=== PATIENT | male | born 2005 | race American Indian/Alaskan Native ===

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

== ENCOUNTER 2024-01-01 17:19 | Emergency (ER) | payer SELFPAY ==
[2024-01-01] MEDS ORDERED: Sodium Chloride 0.9% 10 ML Syringe FLUSH PRN (17:27)
[2024-01-01 17:42] LABS: BASOPHILS PERCENT AUTO 0.6 % (0.0-1.0); EOSINOPHILS PERCENT AUTO 0.9 % (1.0-3.0); HEMATOCRIT 47.2 % (40.0-54.0); HEMOGLOBIN 16.1 g/dL (14.0-18.0); LYMPHOCYTES PERCENT AUTO 23.2 % (20.5-50.1); MEAN CORPUSCULAR HEMOGLOBIN 28.5 pg (27.0-34.0); MEAN CORPUSCULAR HGB CONC 34.1 g/dL (33.0-35.0); MEAN CORPUSCULAR VOLUME 83.7 fL (80-100); MONOCYTES PERCENT AUTO 7.4 % (2-8); NEUTROPHILS PERCENT AUTO 67.9 % (42.2-75.2); PLATELET COUNT,PLT 376 10^3/uL (150-450); RED BLOOD CELL COUNT 5.64 10^6/uL (4.6-6.2)
[2024-01-01] MEDS: Ondansetron 4 MG/2 ML SDV IVPUSH ONE (17:44)
[2024-01-01 18:01] LABS: PROTHROMBIN TIME 9.9 SEC (9.0-12.0); PTT,PARTIAL THROMBOPLSTIN TIME 25.9 SEC (22.0-34.0)
[2024-01-01 18:02] LABS: APPEARANCE,URINE CLEAR (CLEAR); BILIRUBIN,URINE NEGATIVE (NEGATIVE); COLOR,URINE LIGHT YELLOW (YELLOW); GLUCOSE,URINE NEGATIVE (NEGATIVE); KETONES,URINE NEGATIVE (NEGATIVE); LEUKOCYTE ESTERASE,URINE TRACE (NEGATIVE); NITRITE,URINE NEGATIVE (NEGATIVE); OCCULT BLOOD,URINE TRACE-INTACT (NEGATIVE); PROTEIN,URINE NEGATIVE (NEGATIVE); UROBILINOGEN,URINE 0.2 mg/dL (0.2-1.0)
[2024-01-01] MEDS: Naloxone 2 MG/2 ML Syringe IVPUSH ONE (18:05)
[2024-01-01] MEDS: Sodium Chloride 0.9% 1,000 ML IV ONE ×2 (18:05)
[2024-01-01 18:08] LABS: AMPHETAMINES,URINE NEGATIVE (NEGATIVE); BARBITURATES,URINE NEGATIVE (NEGATIVE); BENZODIAZEPINE,URINE NEGATIVE (NEGATIVE); MDMA (ECSTASY), URINE NEGATIVE (NEGATIVE); METHADONE,URINE NEGATIVE (NEGATIVE); METHAMPHETAMINES,URINE NEGATIVE (NEGATIVE); OPIATES,URINE NEGATIVE (NEGATIVE); OXYCODONE,URINE NEGATIVE (NEGATIVE); PHENCYCLIDINE,URINE NEGATIVE (NEGATIVE); TCA,URINE NEGATIVE (NEGATIVE)
[2024-01-01 18:09] LABS: LACTIC ACID 2.1 mmol/L (0.4-2.0)
[2024-01-01 18:11] LABS: BACTERIA,URINE RARE /HPF (0-FEW/HPF); EPITHELIAL CELLS,URINE FEW /HPF (NOT SEEN); RBC,URINE 0-5 /HPF (0-5)
[2024-01-01 18:12] LABS: ALANINE AMINOTRANSFERASE,ALT 75 U/L (16-63); ALBUMIN 4.1 g/dL (3.4-5.0); ALKALINE PHOSPHATASE 157 U/L (46-116); ANION GAP 16.6 mEq/L (7-13); ASPARTATE AMNIOTRANSFERASE,AST 40 U/L (15-37); BILIRUBIN TOTAL 0.4 mg/dL (0.2-1.0); BLOOD UREA NITROGEN,BUN 8 mg/dL (7-18); BUN/CREATININE RATIO 9.4 (No establ ref range); C-REACTIVE PROTEIN 0.67 ng/dL (<=0.50); CALCIUM 9.1 mg/dL (8.5-10.1); CARBON DIOXIDE,CO2 25 mmol/L (21-32); CHLORIDE,CL 104 mmol/L (98-107); CREATININE 0.85 mg/dL (0.70-1.30); EST CRCL DRUG DOSING (CG) 156.67 mL/min; GLUCOSE RANDOM 112 mg/dL (70-99); MAGNESIUM 2.1 mg/dL (1.8-2.4); POTASSIUM,K 3.6 mmol/L (3.5-5.1); PROTEIN TOTAL,TP 8.3 g/dL (6.4-8.2); SODIUM,NA 142 mmol/L (136-145)
[2024-01-01] MEDS: Flumazenil 0.1 MG/ML 5 ML MDV IVPUSH ONE (18:49)
[2024-01-01 18:56] LABS: ESTIMATED GFR 128 mL/min (>=60); ETHANOL BLOOD MEDICAL 308 mg/dL (0)
[2024-01-01] MEDS ORDERED: Sodium Chloride 0.9% 2,000 ML IV ONE (19:12)
[2024-01-01] MEDS: cefTRIAXone 1 GM Vial IVPUSH ONE (19:35)
[2024-01-01 22:20] VITALS: BP 112/55; PULSE 90
== END 2024-01-02 06:26 | disposition left against medical advice (07) ==
LOC: DL.ED 17:19
DX: A41.9 Sepsis, unspecified organism (principal); R41.82 Altered mental status, unspecified; E86.0 Dehydration; F10.920 Alcohol use, unspecified with intoxication, uncomplicated
CPT/HCPCS: 36415; 70450; 71045; 72125; 80053; 80305-QW; 80307; 81001; 82140; 82947; 83605; 83735; 84145; 84484; 85025; 85610; 85730; 86140; 87040; 87086; 93005; 93010; 96361; 96374; 96375; 99285; 99285-25; C1758; J0696; J2310; J2405; J3490; J7030